=== PATIENT | male | born 1970 | race Caucasian/White ===

== ENCOUNTER 2019-11-22 08:56 | Outpatient (CLI) | payer OTHER, SELFPAY ==
--- NOTE | 2019-11-22 11:00 | NEURO_ITS ---
Patient Number: [id number] Impression: # Complains of numbness of hands. # Bilateral Carpal Tunnel Syndrome, right more than left. # No ulnar neuropathy. # Needle/EMG exam not requested. Nerve Conduction Studies Anti Sensory Summary Table Stim Site NR Peak (ms) P-T Amp (?V) Site1 Site2 Delta-P (ms) Dist (cm) Timoteo (m/s) Left Median Anti Sensory (2-3nd Digit) Wrist 3.8 50.5 Wrist 2-3nd Digit 3.8 14.0 37 Wrist 3.7 56.0 Wrist 2-3nd Digit 3.8 14.0 37 Right Median Anti Sensory (2-3nd Digit) Wrist 3.8 29.4 Wrist 2-3nd Digit 3.8 14.0 37 Wrist 3.8 36.2 Wrist 2-3nd Digit 3.8 14.0 37 Left Radial Anti Sensory (Base 1st Digit) Wrist 1.9 30.6 Wrist Base 1st Digit 1.9 0.0 Right Radial Anti Sensory (Base 1st Digit) Wrist 2.3 18.6 Wrist Base 1st Digit 2.3 0.0 Left Ulnar Anti Sensory (5th Digit) Wrist 2.7 35.5 Wrist 5th Digit 2.7 14.0 52 Right Ulnar Anti Sensory (5th Digit) Wrist 2.9 17.1 Wrist 5th Digit 2.9 14.0 48 Motor Summary Table Stim Site NR Onset (ms) O-P Amp (mV) Site1 Site2 Delta-0 (ms) Dist (cm) Timoteo (m/s) Left Median Motor (Abd Poll Brev) Wrist 4.1 3.4 Elbow Wrist 5.7 29.0 51 Elbow 9.8 3.4 Right Median Motor (Abd Poll Brev) Wrist 5.7 2.6 Elbow Wrist 5.8 30.0 52 Elbow 11.5 2.3 Left Ulnar Motor (Abd Dig Minimi) Wrist 3.0 5.8 A Elbow Wrist 5.7 31.0 54 A Elbow 8.7 4.7 Right Ulnar Motor (Abd Dig Minimi) Wrist 2.8 4.5 A Elbow Wrist 5.9 32.0 54 A Elbow 8.7 3.3 F Wave Studies NR F-Lat (ms) L-R F-Lat (ms) Left Median (Mrkrs) (Abd Poll Brev) 32.94 1.20 Right Median (Mrkrs) (Abd Poll Brev) 34.14 1.20 Left Ulnar (Mrkrs) (Abd Dig Min) 31.17 0.63 Right Ulnar (Mrkrs) (Abd Dig Min) 31.80 0.63 MTDD
== END 2019-11-22 08:57 | disposition home or self-care (01) ==
LOC: ANHNEURO 08:58
PROVIDERS: PCP Internal Medicine; Visit Provider Plastic Surgery
DX: R20.0 Anesthesia of skin (principal); R53.1 Weakness; G56.03 Carpal tunnel syndrome, bilateral upper limbs
CPT/HCPCS: 95911

== ENCOUNTER 2019-12-19 00:42 | Outpatient (CLI) | payer OTHER, SELFPAY ==
[2019-12-19 20:03] LABS: SARS-CoV-2 RNA PCR Negative
== END 2019-12-19 00:43 | disposition home or self-care (01) ==
LOC: ANHCOVIDDT 00:43
PROVIDERS: PCP Internal Medicine; Visit Provider Plastic Surgery
DX: Z01.818 Encounter for other preprocedural examination (principal); Z11.59 Encounter for screening for other viral diseases
CPT/HCPCS: 87635; C9803; U0003

== ENCOUNTER 2019-12-21 01:47 | Day surgery (SDC) | payer OTHER, SELFPAY ==
[2019-12-08 13:43] VITALS: BMI 43.2
--- NOTE | 2019-12-21 06:27 | HP_ITS ---
DATE OF SERVICE: DIAGNOSIS: Bilateral carpal tunnel syndrome. HISTORY: The patient presented in August 2019, complaining of pain, weakness, and numbness in both hands. He was sent for nerve conduction test. This was done by Dr. Bates on 11/22/2019 and it shows bilateral carpal tunnel syndrome, right more than the left. The patient complains that his symptoms have been going on for years. He speaks of swelling and tingling, that he cannot sleep on either side because it causes numbness in hands. Symptoms are worse when he is working. Says the whole hand will get numb. 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 I recommended carpal tunnel release to him so he can return to his work. He understands there could be hematoma, nerve injury, wound infection, slow or minimal recovery of premorbid condition, an infection nerve or tendon injury. He would like to proceed. He prefers to do this under local anesthetic, both hands the same day. PAST MEDICAL HISTORY: ALLERGIES: HE HAS NO KNOWN ALLERGIES TO MEDICATIONS. PAST SURGICAL HISTORY: He lists no prior surgeries. CURRENT MEDICATIONS: Metformin, atorvastatin, testosterone topical, Men's daily vitamins, fish oil, glucosamine chondroitin, Super B-Complex, vitamin D. He is not seeing any medical intern at this time. REVIEW OF SYSTEMS: He reports that he is not a smoker. Reports that he is prediabetic. FAMILY HISTORY: Noncontributory. 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 He does not list a spouse. PHYSICAL EXAMINATION: GENERAL: Reveals he is 5 feet 11 inches and 310 pounds. He is in no acute distress. HEENT: Unremarkable. CHEST: Clear to auscultation. HEART: Regular rate and rhythm by palpation. ABDOMEN: Soft, nontender. EXTREMITIES: Reveal a few findings, other positive. Wrist compression test was positive on both sides. It is likely that this essentially negative exam relates to the duration of his symptoms. ASSESSMENT: Bilateral carpal tunnel syndrome. PLAN: Bilateral open carpal tunnel release under local anesthetic. Mandy I MT: Darrell MOMIN
--- NOTE | 2019-12-21 07:18 | WPDHPUPDATE1 ---
History and Physical Update Update Date/Time: 12/21/19 07:18 History and Physical has been reviewed, including an updated exam of the patient. There are NO changes in the patient's condition. Risks, benefits, and alternatives have been discussed and questions answered. Patient agrees to proceed with procedure.
[2019-12-21 09:08] VITALS: BP 170/87; PULSE 80; RESP 18; TEMP 36.3; O2SAT 97
[2019-12-21 09:10] VITALS: BP 204/102; PULSE 79; RESP 18; O2SAT 95
[2019-12-21] MEDS: LIDO 1%/EPINEPHRINE 1:100,000 20 ML VIAL 14 ML INFILTRATE (09:17)
[2019-12-21 09:20] VITALS: BP 222/111; PULSE 78; RESP 18; O2SAT 95
[2019-12-21 09:30] VITALS: BP 199/103; PULSE 80; RESP 18; O2SAT 95
[2019-12-21 09:40] VITALS: BP 235/104; PULSE 84; RESP 18; O2SAT 94
--- NOTE | 2019-12-21 09:49 | PM.OP ---
Procedure Note - Brief Procedure Note - Brief Date of procedure: 12/21/19 Pre-op diagnosis: Bilateral Carpal Tunnel Post-op diagnosis: same Procedure performed: B OCTR Anesthesia: local Surgeon: Ander Kemp MD Estimated blood loss (mL): 3 Tourniquet time (min): 0 Drains: No Pathology: none sent Complications: No immediate complications Condition: stable Disposition: same day
[2019-12-21 09:51] VITALS: BP 173/92; PULSE 77; RESP 14; O2SAT 95
--- NOTE | 2019-12-21 18:25 | P.OP_ITS ---
Procedure Note - Detailed Date of procedure: 12/21/19 Pre-op diagnosis: Bilateral Carpal Tunnel Post-op diagnosis: same Procedure performed: bilateral open carpal tunnel release Description of procedure: the palmar wrist was marked on each hand as the patient was waiting in the holding area. He was then taken to the operating room and placed supine on the operating table. A time-out was held and confirmed. The 2 hands were prepped and draped in the usual fashion. Each was anesthetized with 1% lidocaine with epinephrine. The tourniquet was not utilized on either side. Bleeding did not present a significant problem although a finding on this case was robust muscle lying in transverse orientation directly over both the carpal ligaments. The left hand was done 1st with an incision in the palm as marked. Dissection was carried through the subcutaneous tissue to the palmar fascia. This was incised with a 15 blade to reveal a thick muscular structure superficial to the carpal ligament Associated with this muscle was a 2 mm tubular structures in the distal half of the wound that was protected throughout the remainder of the case. The transverse carpal ligament was identified and incised with a 15. Blade. This ligament was of average thickness it was divided distally and proximally for complete release this done with 3 point retraction. This wound was then closed with interrupted 4-0 nylon suture the original incision had been extended proximally approximately 1 cm The bandage was applied and attention was turned to the right side. On the right side the incision was again made as marked the dissection was car ried through the subcutaneous tissue was sharp and blunt dissection to reveal the palmar fascia. On this side robot transverse muscle was again identified and a 2 mm tubular structure traversing diagonally across the proximal half of this dissection. This structure was preserved. The muscle was carefully divided observing for additional neurovascular structures. The transverse carpal ligament was identified and incised with a 15. Blade. The ligament was divided its full length distal and proximal to release it. . again this ligament was of average thickness no other unusual anatomy was identified. The skin wound on this side also been lengthened by a cm. The wound was closed with interrupted 4-0 nylon suture. The usual bandage was applied. The patient was discharged home with instructions in wound care and follow-up a prescription for hydrocodone number 12 was sent to his pharmacy Surgeon: Ander Kemp MD
== END 2019-12-21 10:15 | disposition home or self-care (01) ==
PROVIDERS: PCP Internal Medicine; Visit Provider Plastic Surgery
PROC: (CPT 64721; principal; 2019-12-21 09:15)
DX: G56.03 Carpal tunnel syndrome, bilateral upper limbs (principal); R73.03 Prediabetes; Z79.84 Long term (current) use of oral hypoglycemic drugs
CPT/HCPCS: 64721; A9270

== ENCOUNTER → 2021-03-26 15:22 | Outpatient (CLI) | payer OTHER, SELFPAY ==
--- NOTE | ~2021-03-26 | XR_ITS ---
XR hand RT min 3V DATE: 03/26/2021 15:59 INDICATION: Right hand pain TECHNIQUE: 3 views COMPARISON: None FINDINGS: No fracture or dislocation, periosteal reaction or bone destruction. No erosive change. T here is mild polyarticular osteoarthritis, including first carpometacarpal joint, metacarpophalangeal joints, greatest at fourth MCP joint, and mild osteoarthritic change at interphalangeal joints. No fracture or dislocation, periosteal reaction or bone destruction. IMPRESSION: Mild polyarticular osteoarthritis Reviewed, dictated and finalized at location B.
== END ==
PROVIDERS: PCP Internal Medicine; Visit Provider Internal Medicine
DX: M19.041 Primary osteoarthritis, right hand (principal)
CPT/HCPCS: 73130

== ENCOUNTER 2021-06-06 14:33 | Outpatient (RCR) | payer OTHER, SELFPAY ==
[2021-06-06] MEDS: FAMOTIDINE 20 MG TABLET PO (15:11)
[2021-06-06] MEDS: diphenhydrAMINE HCl CAP 25 MG CAPSULE PO (15:11)
[2021-06-06] MEDS: ACETAMINOPHEN 325 MG TABLET 650 MG PO (15:11)
[2021-06-06 15:16] VITALS: BP 132/70; PULSE 97; RESP 18; TEMP 37.1; O2SAT 98
[2021-06-06 16:09] VITALS: BP 143/71
== END 2021-06-06 17:00 ==
LOC: AMCINF 14:33
PROVIDERS: PCP Internal Medicine; Referring Provider Internal Medicine; Visit Provider Internal Medicine Hematology & Oncology
DX: U07.1 COVID-19 (principal); I10 Essential (primary) hypertension
CPT/HCPCS: A9270; M0243; Q0244

== ENCOUNTER 2021-07-26 02:36 | Day surgery (SDC) | payer OTHER, SELFPAY ==
[2021-07-15 10:54] VITALS: BMI 41.8
--- NOTE | 2021-07-25 09:22 | WPDANESEPPF ---
Anes - Initial Pre Proc Eval Procedure: Operation Date: 07/26/21 09:00 Proposed Procedures p Screening Colonoscopy - Gerald Wing MD Date/Time: 07/25/21 09:22 Surgeon: Gerald Wing MD Pre Op Diagnosis: neoplasm screening Patient Data Age: 50 Gender: M Height: 1.8 m Weight: 136 kg Allergies Allergy/AdvReac Type Severity Reaction Status Date / Time No Known Allergies Allergy Verified 07/15/21 10:47 Home Medications Medication Instructions Recorded Confirmed Type omega-3 fatty acids 1,000 mg 1,000 mg PO BID 08/05/19 07/15/21 History capsule multivitamin 1 tablet PO DAILY 12/08/19 07/15/21 History cholecalciferol (vitamin D3) 50 50 mcg PO DAILY 02/06/20 07/15/21 History mcg (2,000 unit) tablet atorvastatin 10 mg tablet 10 mg PO DAILY #90 tablet 11/23/20 07/15/21 Rx metronidazole 0.75 % topical cream 1 applic TOPICAL DAILY #45 gm 01/28/21 07/15/21 Rx testosterone 20.25 mg/1.25 gram 4 pump TOPICAL DAILY #75 g 05/16/21 07/15/21 Rx (1.62 %) transdermal gel pump losartan 100 mg tablet 100 mg PO DAILY #90 tablet 05/17/21 07/15/21 Rx metformin 1,000 mg PO BID 07/15/21 07/15/21 History etodolac 400 mg tablet 400 mg PO BID #60 tablet 07/24/21 Rx Patient hx anesthesia problems: none Family hx anesthesia problems: none Results Review: All pre-operative results and documents have been reviewed as part of the pre-operative evaluation. [facility] Past Medical History Medical History Hypertension Mixed hyperlipidemia Obstructive sleep apnea CPAP Surgical History Surgical History Status post carpal tunnel release of both wrists Family History Family History Grandparent Cerebrovascular accident Father Malignant neoplasm of prostate Family history of heart disease in male family member before age 55 Mother Family history of diabetes mellitus in first degree relative Social History Social History Smoking packs per day: 1.5 Smoking cigarettes per day: 30.0 Years smoked: 15 Smoking pack-years: 22.50 Smoking status: Former smoker Tobacco type: cigarettes Second hand tobacco smoke exposure: Yes Smoking end date: 02/21/05 Alcohol intake: current Drinks per week: 15 Alcohol use details: occasional alcohol intake Substance use: never Living arrangements: with family Gender identity (if verbalized by the patient): Male Spiritual care concerns: No Anes - Eval Final PreProcedure Day of Procedure 07/25/21 09:22 Patient weight: morbidly obese Heart: regular rate and rhythm Lungs: clear to auscultation and normal air movement Airway: Mallampati scale class II Neurological: alert and oriented Last oral intake: >/= 8 hours ASA classification: III Emergent: no Anesthetic plan: proceed Anesthesia type and monitoring: general GIVS and standard monitoring Results Review: All pre-operative results and documents have been reviewed as part of the pre-operative evaluation. Informed Consent: The patient's anesthetic plan and its attendant risks and benefits were discussed with the patient/family/POA. Questions were solicited and answers provided to the satisfaction of the patient/family/POA.
--- NOTE | 2021-07-25 14:34 | PM.HPGS ---
History of Present Illness History of Present Illness Consent: Risks, benefits, and alternatives have been discussed and questions answered. Patient agrees to proceed with procedure. Chief complaint: neoplasm screening Narrative: Gerald Forman is a 50 year old male referred for colon cancer screening Review of Systems Review of Systems: All systems reviewed & are unremarkable except as noted in HPI and below PMFSH Past Medical History Medical History Hypertension Mixed hyperlipidemia Obstructive sleep apnea CPAP Surgical History Surgical History Status post carpal tunnel release of both wrists Family History Family History Grandparent Cerebrovascular accident Father Malignant neoplasm of prostate Family history of heart disease in male family member before age 55 Mother Family history of diabetes mellitus in first degree relative Social History Social History Smoking packs per day: 1.5 Smoking cigarettes per day: 30.0 Years smoked: 15 Smoking pack-years: 22.50 Smoking status: Former smoker Tobacco type: cigarettes Second hand tobacco smoke exposure: Yes Smoking end date: 02/21/05 Alcohol intake: current Drinks per week: 15 Alcohol use details: occasional alcohol intake Substance use: never Living arrangements: with family Gender identity (if verbalized by the patient): Male Spiritual care concerns: No Meds Home Medications and Allergies Home Medications Medication Instructions Recorded Confirmed Type omega-3 fatty acids 1,000 mg 1,000 mg PO BID 08/05/19 07/15/21 History capsule multivitamin 1 tablet PO DAILY 12/08/19 07/15/21 History cholecalciferol (vitamin D3) 50 50 mcg PO DAILY 02/06/20 07/15/21 History mcg (2,000 unit) tablet atorvastatin 10 mg tablet 10 mg PO DAILY #90 tablet 11/23/20 07/15/21 Rx metronidazole 0.75 % topical cream 1 applic TOPICAL DAILY #45 gm 01/28/21 07/15/21 Rx testosterone 20.25 mg/1.25 gram 4 pump TOPICAL DAILY #75 g 05/16/21 07/15/21 Rx (1.62 %) transdermal gel pump losartan 100 mg tablet 100 mg PO DAILY #90 tablet 05/17/21 07/15/21 Rx metformin 1,000 mg PO BID 07/15/21 07/15/21 History etodolac 400 mg tablet 400 mg PO BID #60 tablet 07/24/21 Rx Allergies Allergy/AdvReac Type Severity Reaction Status Date / Time No Known Allergies Allergy Verified 07/15/21 10:47 Exam Const: General: alert Orientation/consciousness: patient oriented x3 Resp: Auscultation: clear to auscultation bilaterally Cardio: Rhythm: regular rhythm GI: GI Palp: Yes Soft to palpation and No Tenderness to palpation present (GI) Neuro: General: patient oriented x3 Assessment and Plan Assessment and plan (1) Colon cancer screening: Code(s): Z12.11 - Encounter for screening for malignant neoplasm of colon Status: Acute Assessment and Plan: Colonoscopy with possible biopsy or polypectomy or cautery or injection of substances.
[2021-07-26 08:10] VITALS: BP 127/79; PULSE 75; RESP 20; TEMP 36.9; O2SAT 98
[2021-07-26 08:18] LABS: Glucose Point of Care 116 mg/dl (65-105)
[2021-07-26] MEDS: LACTATED RINGERS 1,000 ML 150 ML IV CONT (08:33)
[2021-07-26 09:25] VITALS: BP 143/106; PULSE 84; RESP 24; O2SAT 98
[2021-07-26 09:35] VITALS: BP 129/74; PULSE 73; RESP 25; O2SAT 98
[2021-07-26 09:45] VITALS: BP 131/71; PULSE 69; RESP 20; O2SAT 99
== END 2021-07-26 09:57 | disposition home or self-care (01) ==
PROVIDERS: PCP Internal Medicine; Visit Provider Internal Medicine Gastroenterology
PROC: 0DJD8ZZ Inspection of Lower Intestinal Tract, Via Natural or Artificial Opening Endoscopic (ICD-10-PCS; CPT 45378; principal; 2021-07-26 09:00)
DX: Z12.11 Encounter for screening for malignant neoplasm of colon (principal); Z80.0 Family history of malignant neoplasm of digestive organs; D12.8 Benign neoplasm of rectum; K57.30 Diverticulosis of large intestine without perforation or abscess without bleeding; Z79.84 Long term (current) use of oral hypoglycemic drugs; I10 Essential (primary) hypertension; E78.2 Mixed hyperlipidemia; G47.33 Obstructive sleep apnea (adult) (pediatric); Z87.891 Personal history of nicotine dependence; E66.01 Morbid (severe) obesity due to excess calories; Z68.41 Body mass index [BMI] 40.0-44.9, adult
CPT/HCPCS: 45380; 82948; 88305; J2704; J7120

== ENCOUNTER 2023-08-05 10:10 | Outpatient (CLI) | payer OTHER, SELFPAY ==
--- NOTE | ~2023-08-05 | MMUS_ITS ---
EXAMINATION: MM diagnostic mammo unilat LT, US breast LT limited HISTORY: Palpable left breast lump TECHNIQUE: Additional 3-D tomosynthesis images of the left breast were performed and synthetic 2-D im ages were generated. CAD analysis was submitted and interpreted. High resolution Limited left breast ultrasound was performed. COMPARISON: None BREAST PARENCHYMAL COMPOSITION: Not Dense: Breast are almost entirely fatty. FINDINGS: MAMMOGRAPHIC FINDINGS: There are no suspicious masses, calcifications or architectural distortion in either breast to sugges t malignancy. There is bilateral gynecomastia. ULTRASOUND: Limited left breast ultrasound: Normal heterogeneous echotexture without focal solid or cystic mass. IMPRESSION: 1. No evidence for malignancy. 2. Recommend follow-up clinical management for gynecomastia. BI-RADS Category 1: Negative Reviewed, dictated and finalized at location A. 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 No evidence for malignancy. 2. Recommend follow-up clinical management for gynecomastia. BI-RADS Category 1: Negative
== END 2023-08-05 10:11 | disposition home or self-care (01) ==
LOC: ANHIMG 10:11
PROVIDERS: PCP Nurse Practitioner Family; Visit Provider Nurse Practitioner Family
DX: N63.20 Unspecified lump in the left breast, unspecified quadrant (principal)
CPT/HCPCS: 76642; 77065

== ENCOUNTER 2023-08-05 12:22 | Outpatient (CLI) | payer OTHER, SELFPAY ==
--- NOTE | ~2023-08-05 | XR_ITS ---
EXAMINATION: XR chest 2V DATE: 08/05/2023 12:30 INDICATION: Soft tissue lump of the left chest TECHNIQUE: PA and lateral views of the chest are obtained. COMPARISON: None available FINDINGS: The lungs are free of acute opacities. No pleural effusion or pneumothorax. The cardiomedia stinal silhouette is normal. There is mild thoracic spondylosis. No radiographic correlate is identif ied for the reported palpable lump of the left chest. IMPRESSION: 1. No acute cardiopulmonary abnormality. 2. No radiographic correlate identified for the reported palpable lump of the left chest. Further micaela luation at this time should be based on clinical assessment. Reviewed, dictated and finalized at location B. 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 No acute cardiopulmonary abnormality. 2. No radiographic correlate identified for the reported palpable lump of the l eft chest. Further evaluation at this time should be based on clinical assessme nt.
== END 2023-08-05 12:23 ==
PROVIDERS: PCP Nurse Practitioner Family; Visit Provider Nurse Practitioner Family
DX: N63.20 Unspecified lump in the left breast, unspecified quadrant (principal); Z87.891 Personal history of nicotine dependence
CPT/HCPCS: 71046

== ENCOUNTER 2025-05-21 13:37 | Emergency (ER) | payer OTHER, SELFPAY ==
--- NOTE | ~2025-05-21 | XR_ITS ---
EXAMINATION: XR abdomen/kub 1V, 05/21/2025 15:06 OPHTHALMOLOGIST HISTORY: left CVA tenderness, FLANK PAIN COMPARISON: No comparisons available. Technique: 3 view. Findings: Bowel gas pattern unremarkable. No obstruction. No free air. No abnormal calcifications No acute osseous abnormality. Impression: 1. No acute abnormality. Reviewed, dictated and finalized at location P. HALMOLOGIST Impression: 1. No acute abnormality.
[2025-05-21 14:01] VITALS: BP 152/73; PULSE 93; RESP 16; TEMP 36.2; O2SAT 98
--- NOTE | 2025-05-21 14:59 | ED.GENADULT ---
HPI - General Adult General Chief complaint: Back Pain/Injury Stated complaint: Back/Kidney Pain Time Seen by Provider: 05/21/25 14:59 Source: patient Mode of arrival: ambulatory Limitations: no limitations History of Present Illness HPI narrative: 54-year-old male patient presents to [facility] with complaints of left-sided lower back pain for the last several weeks on and off but states last 2-3 days is gotten increasingly worse. Denies any pain with urination, frequency or blood noted in his urine. Patient states he has not had kidney stones in the past. Patient also denies any recent injury that he is aware of. Related Data Home Medications ?Medication ?Instructions ?Recorded ?Confirmed ?Last Taken ?Type omega-3 fatty acids 1,000 mg 1,000 mg PO BID 08/05/19 05/21/25 07/25/21 History capsule (Fish Oil Concentrate) multivitamin 1 tablet PO DAILY 12/08/19 05/21/25 07/25/21 History cholecalciferol (vitamin D3) 50 50 mcg PO DAILY 02/06/20 05/21/25 07/25/21 History mcg (2,000 unit) tablet Allergies Allergy/AdvReac Type Severity Reaction Status Date / Time No Known Allergies Allergy Verified 12/19/24 09:26 Review of Systems Review of Systems: CONSTITUTIONAL: Denies fever, chills, or sweats. EYES: Denies visual changes, redness, or discharge. ENT: Denies rhinorrhea, congestion, sore throat, or otalgia. CARDIOVASCULAR: Denies chest pain, palpitations, or edema. RESPIRATORY: Denies cough or dyspnea. GASTROINTESTINAL: Denies abdominal pain, nausea, vomiting, or diarrhea. GENITOURINARY: Denies dysuria or hematuria. SKIN: Denies rash or itching. MUSCULOSKELETAL: positive left lower back pain, joint pain, or myalgia. NEUROLOGIC: Denies headache, numbness, or weakness. PSYCHIATRIC: Denies anxiety or depression. FOR[facility]LY [facility] Past Medical History Medical History Diverticulosis Hypertension Mixed hyperlipidemia Obstructive sleep apnea CPAP Surgical History Surgical History Status post carpal tunnel release of both wrists Family History Family History Grandparent Cerebrovascular accident Father Malignant neoplasm of prostate Family history of heart disease in male family member before age 55 Mother Family history of diabetes mellitus in first degree relative Social History Social History Smoking packs per day: 1.5 Smoking cigarettes per day: 30.0 Years smoked: 15 Smoking pack-years: 22.50 Smoking status: Former smoker Tobacco type: cigarettes Second hand tobacco smoke exposure: Yes Smoking end date: 02/21/05 Alcohol intake: current Drinks per week: 15 Alcohol use details: occasional alcohol intake Substance use: never Lack of Transportation: No Lack of Food: Never True Current Housing: I Have Housing Concerned About Future Housing: No Difficulty Paying Gas/Electric Bills: No Difficulty Paying for Meds: No Currently Unemployed: No Education: Associate Degree Difficulty w/ Childcare or Family Care: No Living arrangements: with family Occupation/Education: occupation Gender identity (if verbalized by the patient): Male Sexual Orientation (if Verbalized by the Patient): Straight or Heterosexual Spiritual care concerns: No Agree to blood products: Yes Comments At the time of my signature I agree with nursing past medical history, surgical, social, and family history. There is no relevant family history pertinent to the presenting complaint. Exam Narrative: GENERAL: Well-appearing, well-nourished, and in no acute distress. HEAD: Normocephalic, atraumatic. EYES: PERRLA and EOMI. ENT: Nares clear, no rhinorrhea or epistaxis. Mucous membranes moist. NECK: Supple. No lymphadenopathy CHEST: Clear to auscultation. No respiratory distress. HEART: Regular rate and rhythm. No murmur heard. Normal peripheral pulses. ABDOMEN: Soft, nontender, nondistended, normal active bowel sounds. EXTREMITIES: Normal range of motion. No edema. BACK: Patient is able to ambulated without assistance. Pt is seated on the stretcher in no obvouis distress. No surface trauma noted. No muscle tenderness to Palpation. No spasm or mass. No step-offs or deformity noted to the cervical, thoracic or lumbar spine to firm Palpation at the midline. CVA tenderness to percussion On the left side. No saddle anesthesia. ROM: able to stand erect. Normal flexion, extension, Lateral bending and rotation without limitation or complaint of pain. SKIN: Warm, dry, no rash. NEURO: No focal deficits. Alert and oriented x3. Course Course Level of Care: Express Care Visit Reevaluation(s) Reevaluation #1: re-evaluated patient notified him that the KUB x-ray is negative for any kidney stones the urine is also negative for any infections and did not show any blood. Discussed with patient that we will send the urine sample off to lab for culture just to be sure there is no infection but this time this is most likely low back strain. Discussed with patient to continue taking Tylenol, ibuprofen, ice the area as well as gentle stretching exercises and follow up with his primary doctor. Patient verbalized understanding denies any other questions or concerns at this time. Date: 05/21/25 Time: 15:31 Vital Signs Vital signs: Vital Signs Temperature 36.2 C L 05/21/25 14:01 Pulse Rate 93 05/21/25 14:01 Respiratory Rate 16 05/21/25 14:01 Blood Pressure 152/73 H 05/21/25 14:01 Pulse Oximetry 98 05/21/25 14:01 Temperature 36.2 C L 05/21/25 14:01 Pulse Rate 93 05/21/25 14:01 Respiratory Rate 16 05/21/25 14:01 Blood Pressure 152/73 H 05/21/25 14:01 Pulse Oximetry 98 05/21/25 14:01 Vital signs reviewed. The patient has been informed that they may have pre-hypertension or Hypertension based on a BP reading in the department. I recommend that the patient call the primary care provider listed on their discharge instructions or a physician of their choice this week to arrange follow up for further evaluation of possible pre-hypertension or Hypertension MDM MDM Narrative Medical decision making narrative: plan care patient is to obtain a urine dip to assess for blood we may also do a KUB to rule out any possible kidney stones. I will reassess patient once this has resulted Differential Diagnosis Differential Diagnosis: Differential diagnosis: Acute musculoskeletal injury or exacerbation, neurological emergency, acute coronary syndrome, kidney stones, epidural abscess or hematoma,Cauda Equina Syndrome, herniation. Lab Data Labs: Lab Results 05/21/25 Range/Units 15:05 POC Urine Color Yellow POC Urine Clarity Clear POC Urine pH 6.0 POC Ur Specif [place] 1.025 POC Urine Protein Negative (Negative) POC Ur Glucose (UA) Negative (Negative) POC Urine Ketones Negative (Negative) POC Urine Blood Negative (Negative) POC Urine Nitrite Negative (Negative) POC Urine Bilirubin Negative (Negative) POC Urine Urobilinogen 0.2 POC U Leukocyte Esteras Negative (Negative) Imaging Data Radiologist's impression: ITS Impressions Abdomen X-Ray 05/21/25 15:15 Impression: 1. No acute abnormality. Critical Care Time Critical Care Time Critical Care Time: No Discharge Plan Discharge Clinical Impression: Low back strain Patient Disposition: Home Condition: Stable Instructions: Antibiotic Form, Acute Low Back Pain (ED) Additional Instructions: Ice and heat to the area for 20-30 minutes Gentle stretching exercises Gentle massage Caution with lifting, bending, stooping, twisting Avoid pushing, pulling Anti-inflammatory medicine as directed--take with food Follow-up with your PCP if not improving in 5-7 days Patient Language: Romanian Prescriptions: No Action omega-3 fatty acids [Fish Oil Concentrate] 1,000 mg capsule 1,000 mg PO BID cholecalciferol (vitamin D3) 50 mcg (2,000 unit) tablet 50 mcg PO DAILY atorvastatin 10 mg tablet 10 mg PO DAILY Qty: 90 3RF metformin 1,000 mg tablet See Rx Instructions .ROUTE .COMPLEX Qty: 180 3RF Dose Instruction: TAKE 1 TABLET TWICE A DAY Rx Instructions: TAKE 1 TABLET TWICE A DAY Mounjaro 7.5 mg/0.5 mL pen injector 7.5 mg subcut WEEKLY Qty: 6 1RF valsartan 320 mg tablet See Rx Instructions .ROUTE .COMPLEX Qty: 90 3RF Dose Instruction: TAKE 1 TABLET DAILY Rx Instructions: TAKE 1 TABLET DAILY testosterone [AndroGel] 20.25 mg/1.25 gram (1.62 %) gel in metered-dose pump 4 pump topical DAILY Qty: 450 5RF Rx Instructions: apply 4 pump amount over max area of EACH upper arm and shoulder multivitamin Tablet 1 tablet PO DAILY Follow-up/Referrals: Jillian Dinh APRN [Primary Care Provider, Internal Medicine] Time of Disposition: 15:30
[2025-05-21 15:08] LABS: EDUAAPPEAR Clear; EDUABILI Negative (Negative); EDUABLOOD Negative (Negative); EDUACOLOR1 Yellow; EDUAGLUCOSE Negative (Negative); EDUAKETONE Negative (Negative); EDUALEUKO Negative (Negative); EDUANITRATE Negative (Negative); EDUAPH 6.0; EDUAPROTEIN Negative (Negative); EDUASPGRAVITY 1.025; EDUAUROBILI 0.2
== END 2025-05-21 15:34 | disposition home or self-care (01) ==
PROVIDERS: Emergency Provider Nurse Practitioner Family; PCP Nurse Practitioner Family
DX: S39.012A Strain of muscle, fascia and tendon of lower back, initial encounter (principal); X58.XXXA Exposure to other specified factors, initial encounter; I10 Essential (primary) hypertension; E78.2 Mixed hyperlipidemia; G47.33 Obstructive sleep apnea (adult) (pediatric); Z87.891 Personal history of nicotine dependence
CPT/HCPCS: 74018; 81003; 87086; 99213; G0463